=== PATIENT | male | born 1985 | race Caucasian/White ===

== ENCOUNTER 2017-10-09 14:34 | Emergency (ER) | payer SELFPAY ==
[~2017-10-09] VITALS: Ht 165.1 cm; Wt 85.0 kg
[2017-10-09 14:56] VITALS: BP 133/80; PULSE 81; RESP 17; TEMP 99.4; O2SAT 98
== END 2017-10-09 17:45 | disposition left against medical advice (07) ==
LOC: NED 14:34
DX: R21 Rash and other nonspecific skin eruption (principal); Z53.21 Procedure and treatment not carried out due to patient leaving prior to being seen by health care provider
CPT/HCPCS: 99281